=== PATIENT | female | born 1935 ===

== ENCOUNTER 2020-02-14 14:21 | Emergency (ER) | payer MEDICARE, SELFPAY ==
[2020-02-14 14:27] VITALS: BP 203/92; PULSE 69; RESP 18; TEMP 36; O2SAT 94; BMI 26.5
--- NOTE | 2020-02-14 14:39 | CTR_ITS ---
PROCEDURE INFORMATION: Exam: CT Thoracic Spine Without Contrast Exam date and time: 02/14/2020 2:47 PM Age: 84 years old Clinical indication: Injury or trauma; Fall; Initial encounter; Blunt trauma (contusions or hematomas); Additional info: Fall, back pain, spinal tenderness TECHNIQUE: Imaging protocol: Computed tomography images of the thoracic spine without contrast. Radiation optimization: All CT scans at this facility use at least one of these dose optimization techniques: automated exposure control; mA and/or kV adjustment per patient size (includes targeted exams where dose is matched to clinical indication); or iterative reconstruction. COMPARISON: No relevant prior studies available. RADIATION DOSE METRICS: Total DLP (mGy-cm): 1280.07 FINDINGS: Vertebrae: There is a minimal acute compression fracture of the T12 superior endplate. No retropulsion. Discs/Spinal canal/Neural foramina: There are degenerative changes throughout the visualized spine including marginal osteophyte formations, endplate degenerative changes, and facet arthropathy. Multilevel disc space narrowing. Soft tissues: There is minimal prevertebral soft tissue edema at the T12 level. Lungs: There are scattered regions of bilateral subpleural interstitial thickening, greatest at the lung bases, suggestive of pulmonary fibrosis. Mediastinum: Small hiatal hernia. CT/CT thoracic spin wo con* [id number] IMPRESSION: There is a minimal acute compression fracture of the T12 superior endplate. Radiation Dose CTDIVOL = (mGy): DLP = 1280.07 (mGy-cm)
--- NOTE | 2020-02-14 14:39 | CTR_ITS ---
PROCEDURE INFORMATION: Exam: CT Lumbar Spine Without Contrast Exam date and time: 02/14/2020 2:47 PM Age: 84 years old Clinical indication: Injury or trauma; Fall; Initial encounter; Blunt trauma (contusions or hematomas); Prior surgery; Surgery date: 6+ months; Surgery type: Lumbar; Additional info: Fall, spinal tenderness TECHNIQUE: Imaging protocol: Computed tomography images of the lumbar spine without contrast. Radiation optimization: All CT scans at this facility use at least one of these dose optimization techniques: automated exposure control; mA and/or kV adjustment per patient size (includes targeted exams where dose is matched to clinical indication); or iterative reconstruction. COMPARISON: [place] [id number] 12/10/2017 11:19 AM RADIATION DOSE METRICS: Total DLP (mGy-cm): 1965.69 FINDINGS: Vertebrae: S1 is a transitional lumbosacral vertebra which is partially lumbarized. There is a rudimentary disc at the S1-S2 level. There is a minimal acute compression fracture of the L2 superior endplate with 10% loss of height and 2 mm retropulsion. No significant canal narrowing. There are degenerative changes throughout the visualized spine including marginal osteophyte formations, endplate degenerative changes, and facet arthropathy. L1-L2: No significant disc protrusion. No severe spinal canal stenosis. No significant neural foraminal narrowing. L2-L3: There is a disc bulge, facet arthropathy, and ligamentum flavum hypertrophy. Moderate canal narrowing. L3-L4: There is a disc bulge, facet arthropathy, and ligamentum flavum hypertrophy with moderate canal narrowing. L4-L5: Left laminotomy changes are present. There is a disc bulge, posterior osteophytes, and facet arthropathy. Moderate to severe bilateral neural foraminal narrowing. L5-S1: There is a disc bulge and facet arthropathy with moderate narrowing of the left neural foramen and mild canal narrowing. Soft tissues: There is prevertebral soft tissue edema at the L2 level. There are postoperative changes in the posterior lumbar spine soft tissues at the L4 and L5 levels. CT/CT lumbar spine wo con* [id number] IMPRESSION: 1. There is a minimal acute compression fracture of the L2 superior endplate as described above. 2. S1 is a transitional lumbosacral vertebra which is partially lumbarized. There is a rudimentary disc at the S1-S2 level. 3. Multilevel, multifactorial degenerative changes are present throughout the lumbar spine with varying degrees of canal and neural foraminal narrowing. Radiation Dose CTDIVOL = (mGy): DLP = 1965.69 (mGy-cm)
--- NOTE | 2020-02-14 14:41 | W.ED.FALL ---
HPI - Fall General: Chief Complaint: Fall Stated Complaint: FALL/BACK PAIN Time Seen by Provider: 02/14/20 14:28 Source: patient and family Mode of arrival: ambulatory Limitations: no limitations History of Present Illness: HPI Narrative: Patient was brought in by her daughter for evaluation of back pain following falls, and was also instructed by her primary care provider to bring her a to be worked up for sepsis. The patient has had frequent falls this week especially in the last 2 days. She has had 3 falls in the last 2 days which is unusual for her. She has been complaining of back pain for the last 2 days. She still able to ambulate but ambulation increases the pain. She denies any weakness in her legs that is new or urinary incontinence. She is being treated for a urinary tract infection, and is currently on nitrofurantoin based on culture results. She was started on nitrofurantoin yesterday. The daughter says that the prior antibiotic that she was taking was resistant to the organism that grew out on her urine culture. She denies any fever but endorses nausea. No vomiting, no diarrhea. Still has some dysuria. MD complaint: fall Onset (ago): day(s) (2) Fall from: standing Fall witnessed: yes, by family Place fall occurred: home Loss of consciousness: None Prolonged down time: no Symptoms prior to fall: other (weakness) Location of injury: back Severity scale (1-10): 7 Associated symptoms-after fall: Denies abdominal pain, headache(s) or neck pain Review of Systems General: Reports: 10 or more systems reviewed and unremarkable except in HPI and below Const: Denies: fever(s), chills or body aches Eyes: Denies: change in vision or blurry vision ENMT: Denies: throat pain, enlarged tonsils, odynophagia, hoarseness, mouth pain or swelling of lips/tongue Card: Denies: palpitations, irregular heart rhythm, edema or swelling of feet/ankles Resp: Denies: dyspnea, productive cough or non-productive cough GI: Denies: abdominal pain, nausea or vomiting : Reports: dysuria; Denies: flank pain, difficulty voiding, urinary frequency, urinary urgency or urinary hesitancy Musc: Reports: back pain; Denies: neck pain or extremity swelling Skin/Breast: Denies: rash, pruritus or erythema Neuro: Denies: headache(s), numbness in extremities or weakness in extremities Endo: Denies: polyuria, polydipsia or tired all the time Physical Exam Const: COMMON NORMALS: no acute distress, average body habitus, patient oriented x3, no limitations, healthy appearing, alert and well nourished HENMT: COMMON NORMALS: normocephalic, atraumatic and moist oral mucous membranes HEAD & SCALP: normocephalic and atraumatic Neck/C-Spine: COMMON NORMALS: full ROM, supple, no meningeal signs, no JVD and No carotid bruits Resp: COMMON NORMALS: normal respiratory effort, No retractions, No use of accessory muscles, clear to auscultation bilaterally and percussion normal AUSCULTATION: clear to auscultation bilaterally PERCUSSION: percussion normal Cardio: COMMON NORMALS: no JVD, regular rate, regular rhythm, S1 normal heart sound present, S2 normal heart sound present, No gallops present (Cardio), No clicks present (Cardio), No murmurs present (Cardio), No rub (Cardio) and Peripheral pulses 2+ throughout RATE: regular rate RHYTHM: regular rhythm HEART SOUNDS: S1 normal heart sound present and S2 normal heart sound present PERIPHERAL PULSES: Peripheral pulses 2+ throughout GI: COMMON NORMALS: Normal to inspection, nondistended, normoactive bowel sounds present, Soft to palpation, non-tender, No hepatosplenomegaly present, no masses and no bruits PALPATION: Yes Soft to palpation and Yes No hepatosplenomegaly present Back/Pelvis: COMMON NORMALS: thoracic and lumbar spine normal to inspection THORACIC SPINE/UPPER BACK: Yes thoracic spinal tenderness LUMBAR SPINE/LOWER BACK: Yes lumbar spinal tenderness Extremity: COMMON NORMALS: normal to inspection, full ROM, capillary refill normal, no calf tenderness and no pedal edema Neuro: COMMON NORMALS: patient oriented x3 SENSORIUM/ORIENTATION: Yes alert MENINGEAL SIGNS: Yes no meningeal signs Skin: COMMON NORMALS: no rashes or lesions noted, no wounds, turgor normal, no jaundice, no petechiae and no mottling GENERAL SKIN EXAM: no rashes or lesions noted and turgor normal Course ED course: 84-year-old female with recurrent falls in the last week and presented with back pain. CT scan of her thoracolumbar spine shows compression fracture of the T12 and L2 lumbar vertebrae. She is also significantly hyponatremic which I think may have been responsible for the falls. She had rhabdomyolysis. She was given IV fluids, but because of the hyponatremia combined with rhabdo and the fractures to be a good idea for her to be admitted to the hospital and then subsequently get rehab at a long-term facility. She was in agreement with this. Because it is a trauma she is not eligible to be admitted to this facility, both hospitals in [place] and not accepting any patient because they are full. The patient has been at [facility] in the past when she had hip fractures and she opted to be transferred there. She was eventually transferred to [facility] under the care of Dr. King. Consultations: Consultation #1: Dr. King, hospitalist at [facility]. He kindly accepted patient to his service. Time: 17:20 Vital Signs: Vital signs: Vital Signs Temperature 96.8 F L 02/14/20 14:27 Pulse Rate 72 02/14/20 19:01 Respiratory Rate 18 02/14/20 19:01 Blood Pressure 170/99 02/14/20 19:01 Pulse Oximetry 100 02/14/20 19:01 MDM - Fall MDM Narrative: Medical decision making narrative: 84-year-old female patient with multiple spinal vertebrae fracture following falls. She also has rhabdomyolysis and hyponatremia. She is transferred to [facility] for further evaluation and management. No neurologic deficit. Medical Records: Attestation: I reviewed the patient's medical records. Lab Data: Attestation: I reviewed the patient's lab results. Labs: Lab Results 02/14/20 02/14/20 02/14/20 Range/Units 15:14 15:20 15:20 WBC 10.4 H (4.0-10.0) 10^3/ uL RBC 3.48 L (4.1-5.3) 10^6/u L Hgb 11.2 L (11.5-15.3) g/dL Hct 34.0 L (37.0-47.0) % MCV 97.7 (81-99) fL MCH 32.2 (28.0-34.0) pg MCHC 32.9 (30.0-36.0) g/dL RDW 11.7 L (12.1-15.1) % Plt Count 147 (130-400) 10^3/c mm MPV 11.6 H (7.4-10.4) fL Neut % (Auto) 85.0 % Lymph % (Auto) 3.7 % [place] % (Auto) 9.3 % Eos % (Auto) 1.3 % Baso % (Auto) 0.5 % Neut # (Auto) 8.85 H (1.8-7.7) 10^3/u L Lymph # (Auto) 0.4 L (0.8-4.8) 10^3/u L [place] # (Auto) 1.0 H (0.2-0.9) 10^3/u L Eos # (Auto) 0.1 (0.0-0.8) 10^3/u L Baso # (Auto) 0.1 (0.0-0.1) 10^3/u L Nucleated RBC % (a uto) 0 % Nucleated RBCs # 0.0 /100WBC Sodium 121 L (136-145) mmol/L Potassium 4.4 (3.5-5.1) mmol/L Chloride 87 L (98-107) mmol/L Carbon Dioxide 20 L (22-29) mmol/L Anion Gap 18.4 (5-19) BUN 17 (8-23) mg/dL Creatinine 1.1 H (0.5-0.9) mg/dL GFR Calculation Not Reportable Glucose 121 H (65-115) mg/dL Calculated Osmolal ity 250 L (285-295) mOsm/k g Lactate (0.5-2.2) mmol/L Calcium 9.2 (8.5-10.5) mg/dL Total Bilirubin 0.7 (0.15-1.2) mg/dL AST 40 H (0-32) U/L ALT 23 (0-33) U/L Alkaline Phosphata se 108 H (35-105) IU/L Creatine Kinase 425 H* (26-192) U/L C-Reactive Protein 62.7 H (0.0-4.9) mg/L Total Protein 8.0 (6.6-8.7) g/dL Albumin 4.8 (3.5-5.2) g/dL Globulin 3.2 (1.3-4.6) g/dL Urine Color Yellow (Yellow) Urine Appearance Clear (CLEAR) Urine pH 6 (5-7) Ur Specific Gravit y 1.010 (1.005-1.030) Urine Protein Trace (Negative) Urine Glucose (UA) Norm (Normal) Urine Ketones 1+ H (Negative) Urine Blood Neg (Negative) Urine Nitrate Negative (Negative) Urine Bilirubin Neg (NEGATIVE) Urine Urobilinogen Norm (Negative) mg/dL Ur Leukocyte Katlyn ase Negative (Negative) Urine RBC None (0-2) /hpf Urine WBC 10-15 H (0-5) /hpf Ur Squamous Epith Cells 0-4 H (0-5) Amorphous Sediment Not Reportable Urine Bacteria Trace (NONE) Urine Mucus Trace 02/14/20 Range/Units 15:20 WBC (4.0-10.0) 10^3/ uL RBC (4.1-5.3) 10^6/u L Hgb (11.5-15.3) g/dL Hct (37.0-47.0) % MCV (81-99) fL MCH (28.0-34.0) pg MCHC (30.0-36.0) g/dL RDW (12.1-15.1) % Plt Count (130-400) 10^3/c mm MPV (7.4-10.4) fL Neut % (Auto) % Lymph % (Auto) % [place] % (Auto) % Eos % (Auto) % Baso % (Auto) % Neut # (Auto) (1.8-7.7) 10^3/u L Lymph # (Auto) (0.8-4.8) 10^3/u L [place] # (Auto) (0.2-0.9) 10^3/u L Eos # (Auto) (0.0-0.8) 10^3/u L Baso # (Auto) (0.0-0.1) 10^3/u L Nucleated RBC % (a uto) % Nucleated RBCs # /100WBC Sodium (136-145) mmol/L Potassium (3.5-5.1) mmol/L Chloride (98-107) mmol/L Carbon Dioxide (22-29) mmol/L Anion Gap (5-19) BUN (8-23) mg/dL Creatinine (0.5-0.9) mg/dL GFR Calculation Glucose (65-115) mg/dL Calculated Osmolal ity (285-295) mOsm/k g Lactate 1.2 (0.5-2.2) mmol/L Calcium (8.5-10.5) mg/dL Total Bilirubin (0.15-1.2) mg/dL AST (0-32) U/L ALT (0-33) U/L Alkaline Phosphata se (35-105) IU/L Creatine Kinase (26-192) U/L C-Reactive Protein (0.0-4.9) mg/L Total Protein (6.6-8.7) g/dL Albumin (3.5-5.2) g/dL Globulin (1.3-4.6) g/dL Urine Color (Yellow) Urine Appearance (CLEAR) Urine pH (5-7) Ur Specific Gravit y (1.005-1.030) Urine Protein (Negative) Urine Glucose (UA) (Normal) Urine Ketones (Negative) Urine Blood (Negative) Urine Nitrate (Negative) Urine Bilirubin (NEGATIVE) Urine Urobilinogen (Negative) mg/dL Ur Leukocyte Katlyn ase (Negative) Urine RBC (0-2) /hpf Urine WBC (0-5) /hpf Ur Squamous Epith Cells (0-5) Amorphous Sediment Urine Bacteria (NONE) Urine Mucus Imaging Data^: Other CT: Radiologist's impression: [address] [address] [address] Scan Report Signed Patient: Leonarda Bolanos #: [id number] : [facility]#:[id number] Age/Sex: 84 / FADM Date: 02/14/20 Loc: ERRoom/Bed: Attending Dr: Ordering Provider/Ordering MD: Dennys Landaverde MD, [facility] [place] of Service: 02/14/20 Procedure(s): CT lumbar spine wo con* [id number] Accession Number(s): [id number] Report Number: [id number] PROCEDURE INFORMATION: Exam: CT Lumbar Spine Without Contrast Exam date and time: 02/14/2020 2:47 PM Age: 84 years old Clinical indication: Injury or trauma; Fall; Initial encounter; Blunt trauma (contusions or hematomas); Prior surgery; Surgery date: 6+ months; Surgery type: Lumbar; Additional info: Fall, spinal tenderness TECHNIQUE: Imaging protocol: Computed tomography images of the lumbar spine without contrast. Radiation optimization: All CT scans at this facility use at least one of these dose optimization techniques: automated exposure control; mA and/or kV adjustment per patient size (includes targeted exams where dose is matched to clinical indication); or iterative reconstruction. COMPARISON: [place] [id number] 12/10/2017 11:19 AM RADIATION DOSE METRICS: Total DLP (mGy-cm): 1965.69 FINDINGS: Vertebrae: S1 is a transitional lumbosacral vertebra which is partially lumbarized. There is a rudimentary disc at the S1-S2 level. There is a minimal acute compression fracture of the L2 superior endplate with 10% loss of height and 2 mm retropulsion. No significant canal narrowing. There are degenerative changes throughout the visualized spine including marginal osteophyte formations, endplate degenerative changes, and facet arthropathy. L1-L2: No significant disc protrusion. No severe spinal canal stenosis. No significant neural foraminal narrowing. L2-L3: There is a disc bulge, facet arthropathy, and ligamentum flavum hypertrophy. Moderate canal narrowing. L3-L4: There is a disc bulge, facet arthropathy, and ligamentum flavum hypertrophy with moderate canal narrowing. L4-L5: Left laminotomy changes are present. There is a disc bulge, posterior osteophytes, and facet arthropathy. Moderate to severe bilateral neural foraminal narrowing. L5-S1: There is a disc bulge and facet arthropathy with moderate narrowing of the left neural foramen and mild canal narrowing. Soft tissues: There is prevertebral soft tissue edema at the L2 level. There are postoperative changes in the posterior lumbar spine soft tissues at the L4 and L5 levels. CT/CT lumbar spine wo con* [id number] IMPRESSION: 1. There is a minimal acute compression fracture of the L2 superior endplate as described above. 2. S1 is a transitional lumbosacral vertebra which is partially lumbarized. There is a rudimentary disc at the S1-S2 level. 3. Multilevel, multifactorial degenerative changes are present throughout the lumbar spine with varying degrees of canal and neural foraminal narrowing. Radiation Dose CTDIVOL = (mGy): DLP = 1965.69 (mGy-cm) Dictated By:Adriana Sterling MD Signed By:Adriana Sterling MDSigned Date/Time:02/14/20 1537 DD/ [address] [address] [address] Scan Report Signed Patient: Leonarda Bolanos #: [id number] : 1935Acct#:[id number] Age/Sex: 84 / FADM Date: 02/14/20 Loc: ERRoom/Bed: Attending Dr: Ordering Provider/Ordering MD: Dennys Landaverde MD, [facility] [place] of Service: 02/14/20 Procedure(s): CT thoracic spin wo con* [id number] Accession Number(s): [id number] Report Number: [id number] PROCEDURE INFORMATION: Exam: CT Thoracic Spine Without Contrast Exam date and time: 02/14/2020 2:47 PM Age: 84 years old Clinical indication: Injury or trauma; Fall; Initial encounter; Blunt trauma (contusions or hematomas); Additional info: Fall, back pain, spinal tenderness TECHNIQUE: Imaging protocol: Computed tomography images of the thoracic spine without contrast. Radiation optimization: All CT scans at this facility use at least one of these dose optimization techniques: automated exposure control; mA and/or kV adjustment per patient size (includes targeted exams where dose is matched to clinical indication); or iterative reconstruction. COMPARISON: No relevant prior studies available. RADIATION DOSE METRICS: Total DLP (mGy-cm): 1280.07 FINDINGS: Vertebrae: There is a minimal acute compression fracture of the T12 superior endplate. No retropulsion. Discs/Spinal canal/Neural foramina: There are degenerative changes throughout the visualized spine including marginal osteophyte formations, endplate degenerative changes, and facet arthropathy. Multilevel disc space narrowing. Soft tissues: There is minimal prevertebral soft tissue edema at the T12 level. Lungs: There are scattered regions of bilateral subpleural interstitial thickening, greatest at the lung bases, suggestive of pulmonary fibrosis. Mediastinum: Small hiatal hernia. CT/CT thoracic spin wo con* [id number] IMPRESSION: There is a minimal acute compression fracture of the T12 superior endplate. Radiation Dose CTDIVOL = (mGy): DLP = 1280.07 (mGy-cm) Dictated By:Adriana Sterling MD Signed By:Adriana Sterling MDSigned Date/Time:02/14/20 1526 DD/ 1524 Discharge Plan Discharge Patient Disposition: Xfer Short-Term Hosp Clinical Impression: Acute hyponatremia Compression fracture of T12 vertebra Qualifiers: Encounter type: initial encounter Qualified Code(s): S22.080A - Wedge compression fracture of T11-T12 vertebra, initial encounter for closed fracture Compression fracture of L2 Qualifiers: Encounter type: initial encounter Qualified Code(s): S32.020A - Wedge compression fracture of second lumbar vertebra, initial encounter for closed fracture Rhabdomyolysis Qualifiers: Rhabdomyolysis type: traumatic Encounter type: initial encounter Qualified Code(s): T79.6XXA - Traumatic ischemia of muscle, initial encounter Condition: Stable Discharge Orders: Transfer Out of Facility (Order); Ordered 02/14/20 Ordered By: Dennys Landaverde Referrals: Bijan Kulkarni DO [Primary Care Provider] - Discharge Date/Time: 02/14/20 19:27 Coding Level of Care Code ED Agricultural Inspector for Chg Fwd Exam Comprehensive
[2020-02-14 15:27] VITALS: BP 152/86; PULSE 71; RESP 16; O2SAT 100
[2020-02-14 15:31] LABS: Basophils # 0.1 10^3/uL (0.0-0.1); Basophils % 0.5 %; Eosinophils # 0.1 10^3/uL (0.0-0.8); Eosinophils % 1.3 %; Hemoglobin 11.2 g/dL (11.5-15.3); Lymphocytes # 0.4 10^3/uL (0.8-4.8); Lymphocytes % 3.7 %; Mean Corpuscular HGB Conc 32.9 g/dL (30.0-36.0); Mean Corpuscular Hemoglobin 32.2 pg (28.0-34.0); Mean Corpuscular Volume 97.7 fL (81-99); Mean Platelet Volume 11.6 fL (7.4-10.4); Monocytes % 9.3 %; Neutrophils # 8.85 10^3/uL (1.8-7.7); Nucleated Red Blood Cells % 0 %; Platelet Count 147 10^3/cmm (130-400); Red Blood Count 3.48 10^6/uL (4.1-5.3); Red Cell Distribution Width 11.7 % (12.1-15.1); White Blood Count 10.4 10^3/uL (4.0-10.0)
[2020-02-14 15:50] LABS: Alanine Aminotransferase 23 U/L (0-33); Albumin Level 4.8 g/dL (3.5-5.2); Alkaline Phosphatase 108 IU/L (35-105); Anion Gap 18.4 (5-19); Aspartate Amino Transferase 40 U/L (0-32); Blood Urea Nitrogen 17 mg/dL (8-23); C Reactive Protein 62.7 mg/L (0.0-4.9); Calcium 9.2 mg/dL (8.5-10.5); Carbon Dioxide 20 mmol/L (22-29); Chloride 87 mmol/L (98-107); Globulin 3.2 g/dL (1.3-4.6); Glucose 121 mg/dL (65-115); Lactate (Lactic Acid level) 1.2 mmol/L (0.5-2.2); Osmolality Calculated 250 mOsm/kg (285-295); Potassium 4.4 mmol/L (3.5-5.1); Sodium 121 mmol/L (136-145); Total Bilirubin 0.7 mg/dL (0.15-1.2)
[2020-02-14 15:54] LABS: Bilirubin Urine Neg (NEGATIVE); Blood Urine Neg (Negative); Glucose Urine UA Norm (Normal); Ketones Urine 1+ (Negative); Nitrate Urine Negative (Negative); Protein Urine Trace (Negative); Urine Appearance Clear (CLEAR); Urine Color Yellow (Yellow); pH Urine 6 (5-7)
[2020-02-14 15:55] LABS: Add Urine Microscopic? YES; Leukocyte Esterase Urine Negative (Negative); Urobilinogen Urine Norm (Negative)
[2020-02-14 16:07] LABS: Creatine Phosphokinase 425 U/L (26-192)
[2020-02-14 16:19] LABS: Bacteria Urine TRACE; Mucus Urine TRACE; Squamous Epithelial Cell Urine 0-4 (0-5)
[2020-02-14 16:20] LABS: Add Urine Culture? No
[2020-02-14] MEDS: sodium chloride 0.9% 1,000 ML 250 ML IV (17:41)
[2020-02-14 17:43] VITALS: BP 171/75; PULSE 72; RESP 16; O2SAT 100
[2020-02-14 18:30] VITALS: BP 165/70; PULSE 72; RESP 16; O2SAT 98
--- NOTE | 2020-02-14 18:48 | PC.NURSE ---
REPORT GIVEN TO AINSLEY Wiley RN AT [facility].
[2020-02-14 19:01] VITALS: BP 170/99; PULSE 72; RESP 18; O2SAT 100
[2020-02-14] MEDS: ketorolac 30 mg/mL INJ 15 MG IVP (19:16)
--- NOTE | 2020-02-14 19:25 | PC.NURSE ---
SHAVONNE ROSENTHAL PLACED [employer]WELLING [employer]NEY [employer]HE[employer].
== END 2020-02-14 19:27 | disposition short-term general hospital (02) ==
PROVIDERS: Emergency Provider Family Medicine; PCP Internal Medicine
DX: S22.080A Wedge compression fracture of T11-T12 vertebra, initial encounter for closed fracture (principal); E87.1 Hypo-osmolality and hyponatremia; S32.020A Wedge compression fracture of second lumbar vertebra, initial encounter for closed fracture; T79.6XXA Traumatic ischemia of muscle, initial encounter; W19.XXXA Unspecified fall, initial encounter
CPT/HCPCS: 12345; 36415; 72128; 72131; 80053; 81001; 82550; 83605; 85025; 86140; 96361; 96374; 96375; 99283; 99284; J1885; J7030